=== PATIENT | male | born 1960 | race Caucasian/White ===

== ENCOUNTER 2021-02-14 17:13 | Emergency (ER) | payer MEDICARE ==
[~2021-02-14] VITALS: Ht 185.4 cm; Wt 103.6 kg
[2021-02-14 17:17] VITALS: Ht 185.4 cm; Wt 103.6 kg
[2021-02-14] MEDS ORDERED: CLEOCIN HCL300 MG PO (19:51)
== END 2021-02-14 20:48 | disposition home or self-care (01) ==
LOC: D.ER 17:13
DX: L72.3 Sebaceous cyst (principal); L03.90 Cellulitis, unspecified; I10 Essential (primary) hypertension; Z72.0 Tobacco use; K76.0 Fatty (change of) liver, not elsewhere classified